=== PATIENT | female | born 1950 | race African-American/Black ===

== ENCOUNTER → 2017-08-15 | Outpatient (CLI) | payer MEDICAID, MEDICARE ==
[~2017-08-15] MED LIST: ASPI-556 PO; CARV3.1262 PO; ISOS60TA62 PO; POTA10CA44 PO; TRIA1TAB91 PO
== END | disposition home or self-care (01) ==
LOC: RADPV 10:18
PROVIDERS: ATTEND Hospitalist
DX: E04.2 Nontoxic multinodular goiter (principal)
CPT/HCPCS: 76536